=== PATIENT | male | born 1970 | race Caucasian/White ===

== ENCOUNTER 2016-07-22 16:29 | Emergency (ER) | payer OTHER ==
[~2016-07-22] VITALS: Ht 162.6 cm; Wt 84.6 kg
[~2016-07-22 16:29] MED LIST: ALEVE220 M2 PO; AMITRIPTYLINE H25 MG PO; CIPRO500 MG PO; ERYTHROMYC1 APPLICAT RIGHT EYE; FLAGYL500 MG PO; METAXALONE800 MG PO; NO HOME MEDS; ZINC50 M1 PO
[2016-07-22 19:50] VITALS: BP 119/84
[2016-07-22] MEDS ORDERED: KEFLEX500 MG PO (19:51)
== END 2016-07-22 20:00 | disposition home or self-care (01) ==
LOC: EME 16:29
PROC: 0HBRXZZ Excision of Toe Nail, External Approach (ICD-10-PCS; principal; 2016-07-22)
DX: L60.0 Ingrowing nail (principal); Z88.6 Allergy status to analgesic agent; Z87.891 Personal history of nicotine dependence
CPT/HCPCS: 99281; 99284; S0020

== ENCOUNTER 2016-11-02 09:51 | Emergency (ER) | payer OTHER ==
[~2016-11-02] VITALS: Ht 162.6 cm; Wt 82.8 kg
[~2016-11-02 09:51] MED LIST changes: +KEFLEX500 MG PO
[2016-11-02 11:44] LABS: ADD MIUA? YES; BILIRUBIN NEGATIVE; BLOOD LARGE; COLOR YELLOW ((YELLOW)); GLUCOSE (STRIP) NEGATIVE; KETONES NEGATIVE; LEUKOCYTES NEGATIVE; NITRITE NEGATIVE; PROTEIN (STRIP) 30; SPECIFIC GRAVITY 1.018 (1.000-1.030); UROBILINOGEN 0.2 MG/DL (0.2-1.0)
[2016-11-02 11:50] LABS: BACTERIA NONE SEEN /HPF; EPITHELIAL CELLS RARE /HPF; MUCUS TRACE /LPF; RED BLOOD CELLS TNTC /HPF (0-5); WHITE BLOOD CELLS 0-5 /HPF (0-5)
[2016-11-02 12:04] LABS: HEMATOCRIT 40.9 % (38.0-50.0); MCH 31.2 PG (29.0-34.0); MCHC 33.7 G/DL (30.0-36.0); MCV 92.5 FL (86-99); MEAN PLAT.VOLUME 8.7 uM^3 (9.0-12.4); PLATELET COUNT 319 K/uL (156-360); RBC DIS.WIDTH-CV 12.6 % (11.8-14.6); RBC DIS.WIDTH-SD 43.1 % (39-53); RED BLOOD COUNT 4.42 M/uL (4.00-5.50); WHITE BLOOD COUNT 9.9 K/uL (4.1-10.2)
[2016-11-02 12:15] LABS: CHLORIDE 110 mEq/L (99-109); POTASSIUM 4.6 mEq/L (3.7-5.4); SODIUM 143 mEq/L (136-147)
[2016-11-02 12:17] LABS: GLUCOSE 100 mg/dL (70-99)
[2016-11-02 12:18] LABS: ANION GAP 9 MEQ/L (2-14)
[2016-11-02 12:19] LABS: TOTAL BILIRUBIN 0.6 mg/dL (0.0-1.0)
[2016-11-02 12:20] LABS: ALKALINE PHOSPHATASE 95 IU/L (3-129)
[2016-11-02 12:21] LABS: GFR ESTIMATE (CALCULATED) > 59 mL/min/
[2016-11-02 12:22] LABS: UREA NITROGEN (BUN) 16 mg/dL (9-23)
[2016-11-02 12:24] LABS: LIPASE 26 U/L (1.0-51.0)
[2016-11-02] MEDS ORDERED: FLOMAX0.4 MG PO (13:05)
[2016-11-02] MEDS ORDERED: ZOFRAN ODT4 MG PO (13:05)
[2016-11-02] MEDS ORDERED: NORCO 5/3251 TABLET PO (13:05)
[2016-11-02 13:26] VITALS: BP 99/87
== END 2016-11-02 13:27 | disposition home or self-care (01) ==
LOC: EME 09:51
PROVIDERS: Nurse Practitioner Family
DX: N13.2 Hydronephrosis with renal and ureteral calculous obstruction (principal); R31.9 Hematuria, unspecified; K76.0 Fatty (change of) liver, not elsewhere classified; K57.30 Diverticulosis of large intestine without perforation or abscess without bleeding; Z87.891 Personal history of nicotine dependence
CPT/HCPCS: 74176; 80053; 81003; 83690; 85027; 99281; 99284; J1885; J2405; J7030

== ENCOUNTER 2016-12-06 10:57 | Emergency (ER) | payer OTHER ==
[~2016-12-06] VITALS: Ht 162.6 cm; Wt 83.0 kg
[~2016-12-06 10:57] MED LIST changes: +FLOMAX0.4 MG PO; +NORCO 5/3251 TABLET PO; +ZOFRAN ODT4 MG PO
[2016-12-06 14:06] VITALS: BP 102/79
== END 2016-12-06 14:09 | disposition home or self-care (01) ==
LOC: EME 10:57
PROC: 0HBRXZZ Excision of Toe Nail, External Approach (ICD-10-PCS; principal; 2016-12-06)
DX: L60.0 Ingrowing nail (principal); J45.909 Unspecified asthma, uncomplicated; Z87.891 Personal history of nicotine dependence
CPT/HCPCS: 99281; 99284; S0020